=== PATIENT | female | born 1980 | race Two or more races ===

== ENCOUNTER 2024-03-17 18:19 | Emergency (ER) | payer MEDICAID ==
[~2024-03-17] VITALS: Ht 152.4 cm; Wt 68.0 kg
[2024-03-17 18:27] VITALS: TEMP 98.7
[2024-03-17 19:36] VITALS: BP 118/68; PULSE 71; RESP 20
[2024-03-17] MEDS ORDERED: IBUP-1492 PO (20:29)
[2024-03-17] MEDS ORDERED: HYDR-4062 PO (20:29)
[2024-03-17] MEDS ORDERED: AMOX500C2 PO (20:29)
[2024-03-17] MEDS: IBUPROFEN 600 MG TABLET PO ONE (20:51)
[2024-03-17] MEDS: AMOXICILLIN TRIHYDRATE 250 MG CAPSULE PO ONE (20:52)
== END 2024-03-17 21:24 | disposition home or self-care (01) ==
LOC: EMS 18:19
DX: K02.9 Dental caries, unspecified (principal)
CPT/HCPCS: 99283

== ENCOUNTER 2024-04-06 17:17 | Emergency (ER) | payer MEDICAID ==
[~2024-04-06] VITALS: Ht 149.9 cm; Wt 68.0 kg
[~2024-04-06 17:17] MED LIST: AMOX500C2 PO; HYDR-4062 PO; IBUP-1492 PO
[2024-04-06 17:29] VITALS: BP 110/69; PULSE 77; RESP 20; TEMP 99.1
[2024-04-06 17:37] LABS: APPEARANCE,URINE CLEAR (CLEAR); BILIRUBIN,URINE NEGATIVE (NEGATIVE); COLOR,URINE YELLOW (YELLOW); GLUCOSE, URINE (UA) NEGATIVE (NEGATIVE); KETONES,URINE NEGATIVE (NEGATIVE); LEUKOCYTE ESTERASE ,URINE SMALL (NEGATIVE); NITRATE,URINE NEGATIVE (NEGATIVE); OCCULT BLOOD,URINE MODERATE (NEGATIVE); PH,URINE 5.5 (5.0-8.0); PROTEIN,URINE NEGATIVE (NEGATIVE); SPECIFIC GRAVITIY, URINE 1.004 (1.003-1.030); UROBILINOGEN,URINE <=1.0 mg/dL (<=1.0)
[2024-04-06 17:48] LABS: BACTERIA,URINE None Seen /HPF (None Seen); SQUAMOUS EPITHELIAL CELL,UR Moderate /LPF (None Seen)
[2024-04-06 18:16] LABS: BASOPHILS % (AUTO) 0.3 % (0.0-2.0); EOSINOPHILS % (AUTO) 2.1 % (1.0-6.0); HEMATOCRIT 41.4 % (36-46); HEMOGLOBIN 13.9 g/dL (12.0-16.0); LYMPHOCYTES # (AUTO) 2.2 K/uL (1.0-4.8); LYMPHOCYTES % (AUTO) 35.8 % (22.0-44.0); MEAN CORPUSCULAR HEMOGLOBIN 30.8 pg (26.0-34.0); MEAN CORPUSCULAR HGB CONC 33.5 G/dL (31.0-37.0); MEAN CORPUSCULAR VOLUME 92 fL (80-100); MONOCYTES # (AUTO) 0.4 K/uL (0.1-1.0); MONOCYTES % (AUTO) 6.4 % (2.0-9.0); NEUTROPHILS # (AUTO) 3.3 K/uL (1.8-7.7); NEUTROPHILS % (AUTO) 55.4 % (40.0-70.0); PLATELET COUNT (AUTO) 185 K/uL (150-450); RED CELL DISTRIBUTION WIDTH 13.6 % (11.5-14.5)
[2024-04-06 18:37] LABS: ANION GAP 12 mmol/L (8-16); CALCIUM, TOTAL 8.6 mg/dL (8.8-10.5); CARBON DIOXIDE 26 mmol/L (22-29); CHLORIDE 102 mmol/L (98-107); GLOMERULAR FILTR. RATE CALC > 60 mL/min (>60); GLUCOSE,RANDOM 132 mg/dL (70-110); POTASSIUM 3.6 mmol/L (3.5-5.1); SODIUM SERUM 140 mmol/L (136-145); UREA NITROGEN, BLOOD 10 mg/dL (7-18)
[2024-04-06 18:49] LABS: HCG,QUANTITATIVE < 1 mIU/mL (0-6)
[2024-04-06] MEDS ORDERED: PHEN-674 PO (20:53)
[2024-04-06] MEDS ORDERED: CEPH-558 PO (20:53)
== END 2024-04-06 21:06 | disposition home or self-care (01) ==
LOC: EMS 17:17
DX: N39.0 Urinary tract infection, site not specified (principal)
CPT/HCPCS: 80048; 81001; 84702; 85025; 99283